=== PATIENT | female | born 2000 | race African-American/Black ===

== ENCOUNTER 2021-02-03 15:12 | Emergency (ER) | payer OTHER ==
--- OUTSIDE RECORDS SUMMARY | 2021-02-03 15:19 | XMS REPORT | Continuity of Care Document ---
:2000 Author Organization [facility] t Address [address] [place] [address] Dr. Pena. [address] [place] [address] Care Team Providers Name Role Phone Froy Grant Attending Clinician Provider, Urgent Care Attending Clinician Unavailable Doctor Unassigned, Name Attending Clinician Unavailable Problems This patient has no known problems. Allergies, Adverse Reactions, Alerts This patient has no known allergies or adverse reactions. Medications This patient has no known medications. Procedures This patient has no known procedures. Encounters Start End Encounter Admission Attending Care Care Encounter Source Date/Time Date/Time Type Type Clinicians Facility Department ID 2021-01-24 2021-01-24 Emergency Karey [facility] [id number] 13:15:00 15:56:00 Kinjal Mejia [id number] [place] [id number] [place] [id number] 2021-01-24 2021-01-24 Urgent Provider SCASHLEY [id number] 12:46:57 13:06:57 Care [facility] [id number] Care [place] [id number] [facility] [phone] nal [address] 2021-01-24 2021-01-24 Orders Doctor DAVIDSON [id number] 00:00:00 00:00:00 Only UnassignedJOSEPH [id number] [place] [phone] [id number] Results This patient has no known results.
[2021-02-03] MEDS ORDERED: ONDANSETRON 4 MG/2 ML VIAL ONE (16:14)
[2021-02-03 16:19] LABS: Absolute Lymphocytes (CBC) 0.7 K/uL (0.7-4.9); Basophils % 0.1 % (0-1.3); Hematocrit 36.9 % (36.0-45.0); MPV 9.7 fL (7.6-11.3); RBC Red Blood Cell Count 4.71 M/uL (3.86-4.86)
[2021-02-03] MEDS ORDERED: NA CHLORIDE 0.9% 1,000 ML ONE ×2 (16:26→19:01)
[2021-02-03 16:30] LABS: ALT/SGPT 22 U/L (12-78); AST/SGOT 20 U/L (15-37); Albumin 4.1 g/dL (3.4-5.0); Alkaline Phosphatase 79 U/L (45-117); BUN Blood Urea Nitrogen 7 mg/dL (7-18); Bicarbonate 20 mmol/L (21-32); Bilirubin Direct 0.1 mg/dL (0-0.2); Bilirubin Total 0.6 mg/dL (0.2-1.0); Glucose Level 128 mg/dL (74-106); Lipase 65 U/L (73-393); Potassium 3.5 mmol/L (3.5-5.1); Protein, Total 8.6 g/dL (6.4-8.2); Sodium Level 143 mmol/L (136-145)
[2021-02-03 16:37] LABS: Urine Blood 1+ (Negative); Urine Glucose Negative (Negative); Urine Protein 1+ (Negative); Urine Specific Gravity 1.025 (1.005-1.030); Urine pH 8.5 (5.0-7.0)
[2021-02-03 16:53] LABS: Urine Specific Gravity/Preg 1.025 (1.005-1.030)
[2021-02-03] MEDS ORDERED: PROMETHAZINE INJ 25 MG/ML AMP ONE ×2 (17:00→19:00)
[2021-02-03] MEDS ORDERED: MORPHINE 4 MG/ML SYR ONE (17:05)
[2021-02-03] MEDS ORDERED: FAMOTIDINE 20 MG/2 ML VIAL IV ONE (17:06)
--- NOTE | 2021-02-03 17:30 | RAD REPORT ---
EXAM DESCRIPTION: CT - Abdomen Pelvis W Contrast - 02/03/2021 5:01 pm CLINICAL HISTORY: ABD PAIN COMPARISON: No comparisons TECHNIQUE: Biphasic, helical CT imaging of the abdomen and pelvis was performed following 100 ml non -ionic IV contrast. Oral contrast was given. All CT scans are performed using dose optimization technique as appropriate and may include automated exposure control or mA/KV adjustment according to patient size. FINDINGS: No suspicious findings in the lung bases. The liver, spleen, and pancreas show no suspicious findings. Gallbladder and biliary tree are also wi thout suspicious finding. Symmetric renal function is seen with no hydronephrosis or suspicious renal mass. No pyelonephritis o r acute parenchymal process. No bladder abnormalities. No adrenal abnormalities. Uterus and ovaries s how no suspicious findings. No dilated bowel loops or bowel wall thickening. No appendicitis findings. No free air, free fluid or inflammatory stranding. No hernia, mass or bulky lymphadenopathy. No suspicious bony findings. IMPRESSION: Contrast enhanced CT abdomen and pelvis showing no significant or suspicious finding.
--- NOTE | 2021-02-03 18:56 | EDPHYS ---
Physician Documentation [facility] Name: Josie Hyde Age: 20 yrs Sex: Female : 2000 Arrival Date: 02/03/2021 Time: 15:16 Bed 26 Private MD: ED Physician Carlin Cisneros HPI: 02/03 16:51 This 20 yrs old Black Female presents to ER via Wheelchair with complaints of Vomiting, ma2 Abdominal Pain. 16:51 The patient presents to the emergency department with nausea, vomiting, abdominal pain. ma2 Onset: The symptoms/episode began/occurred gradually, 1 day(s) ago. Associated signs and symptoms: Pertinent negatives: constipation, dysuria, GI bleeding. Severity of symptoms: At their worst the symptoms were mild in the emergency department the symptoms are unchanged. The patient has experienced similar episodes in the past. 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 - Social history:: Smoking status: Patient denies any tobacco usage or history of. - Family history:: not pertinent. ROS: 16:51 Constitutional: Negative for fever, chills, and weight loss. ma2 16:51 All other systems are negative. Exam: 16:51 Constitutional: This is a well developed, well nourished patient who is awake, alert, ma2 and in no acute distress. Chest/axilla: Normal chest wall appearance and motion. Nontender with no deformity. No lesions are appreciated. Cardiovascular: Regular rate and rhythm with a normal S1 and S2. No gallops, murmurs, or rubs. Normal PMI, no JVD. No pulse deficits. Respiratory: Lungs have equal breath sounds bilaterally, clear to auscultation and percussion. No rales, rhonchi or wheezes noted. No increased work of breathing, no retractions or nasal flaring. Abdomen/GI: Soft, non-tender, with normal bowel sounds. No distension or tympany. No guarding or rebound. No evidence of tenderness throughout. Back: No spinal tenderness. No costovertebral tenderness. Full range of motion. Skin: Warm, dry with normal turgor. Normal color with no rashes, no lesions, and no evidence of cellulitis. MS/ Extremity: Pulses equal, no cyanosis. Neurovascular intact. Full, normal range of motion. Neuro: Awake and alert, GCS 15, oriented to person, place, time, and situation. Cranial nerves II-XII grossly intact. Motor strength 5/5 in all extremities. Sensory grossly intact. Cerebellar exam normal. Normal gait. Vital Signs: 15:44 Pulse 69; Resp 17 S; Temp 97.6(TE); Pulse Ox 100% on R/A; Weight 116.12 kg (R); Height jd3 5 ft. 9 in. (175.26 cm) (R); Pain 10/10; 16:30 BP 136 / 82; Pulse 76; Resp 18; Pulse Ox 100% on R/A; ld1 17:45 BP 128 / 78; Pulse 76; Resp 18; Pulse Ox 100% ; ld1 18:30 BP 132 / 80; Pulse 68; Resp 18; Pulse Ox 100% ; ld1 19:41 BP 134 / 84; Pulse 74; Resp 18; Pulse Ox 100% ; ld1 15:44 Body Mass Index 37.80 (116.12 kg, 175.26 cm) jd3 MDM: 16:27 Patient medically screened. wy2 16:51 Differential diagnosis: gastritis, appendicitis, diverticulitis, viral gastroenteritis, ma2 gastroenteritis. 18:41 Data reviewed: vital signs, nurses notes. Counseling: I had a detailed discussion with ma2 the patient and/or guardian regarding: the historical points, exam findings, and any diagnostic results supporting the discharge/admit diagnosis, the presence of at least one elevated blood pressure reading (>120/80) during this emergency department visit, the need for outpatient follow up. Response to treatment: the patient's symptoms have markedly improved after treatment. ED course: patient has scheduled endoscope with dr. shields, at 11 am, symptoms resolved at this time.. discussed with dr. bullard . 02/03 15:53 Order name: Basic Metabolic Panel; Complete Time: 16:42 [facility] 02/03 15:53 Order name: CBC with Diff [facility] 02/03 15:53 Order name: Hepatic Function; Complete Time: 16:42 [facility] 02/03 15:53 Order name: Lipase; Complete Time: 16:42 wy2 02/03 16:37 Order name: Urine Dipstick-Ancillary; Complete Time: 16:42 EDMS 02/03 16:40 Order name: Urine --Ancillary (enter results); Complete Time: 18:14 eb 02/03 15:57 Order name: CT Abd/Pelvis - IV Contrast Only; Complete Time: 18:14 ma2 02/03 15:53 Order name: IV Saline Lock; Complete Time: 16:02 ma2 02/03 15:53 Order name: Labs collected and sent; Complete Time: 16:02 wy2 02/03 15:53 Order name: Urine Dipstick-Ancillary (obtain specimen); Complete Time: 16:50 ma2 02/03 15:53 Order name: Urine Test (obtain specimen); Complete Time: 16:50 ma2 Administered Medications: 16:02 Drug: Zofran (Ondansetron) 4 mg Route: IVP; Site: left antecubital; ld1 16:33 Follow up: Response: No adverse reaction ld1 16:02 Drug: NS 0.9% 1000 ml Route: IV; Rate: 1 bolus; Site: left antecubital; ld1 17:44 Follow up: Response: No adverse reaction; IV Status: Completed infusion ld1 16:49 Drug: Phenergan (promethazine) 25 mg Route: IVP; Site: left antecubital; ld1 17:43 Follow up: Response: No adverse reaction ld1 16:50 Drug: Pepcid (famotidine) 20 mg Route: IVP; Site: left antecubital; ld1 17:43 Follow up: Response: No adverse reaction ld1 16:50 Drug: morphine 4 mg Route: IVP; Site: left antecubital; ld1 17:43 Follow up: Response: No adverse reaction ld1 18:52 Drug: Dilaudid (HYDROmorphone) 1 mg Route: IVP; Site: left antecubital; ld1 18:53 Follow up: Response: No adverse reaction ld1 18:52 Drug: Phenergan (promethazine) 25 mg Route: IVP; Site: left antecubital; ld1 18:53 Follow up: Response: No adverse reaction ld1 18:53 Drug: NS 0.9% 1000 ml Route: IV; Rate: 1 bolus; Site: left antecubital; ld1 Disposition: 02/03/21 18:55 Discharged to Home. Impression: Upper abdominal pain, unspecified. - Condition is Stable. - Discharge Instructions: Abdominal Pain, Adult, [id number]-[id number]. - Prescriptions for Zofran 4 mg Oral Tablet - take 1 tablet by ORAL route every 12 hours As needed; 20 tablet. Pepcid 20 mg Oral Tablet - take 1 tablet by ORAL route once daily for 10 days; 10 tablet. promethazine 25 mg Oral Tablet - take 1 tablet by ORAL route every 6 hours As needed; 20 tablet. - Medication Reconciliation Form, Thank You Letter, Antibiotic Education, Prescription Opioid Use form. - Follow up: Michael Jackson; When: Tomorrow; Reason: If symptoms return, Continuance of care. Signatures: Dispatcher [employer] Sivakumar Torres RN RN jd3 Carlin Cisneros MD MD ma2 Rosie Brito RN RN ld1 Corrections: (The following items were deleted from the chart) 19:41 18:55 02/03/2021 18:55 Discharged to Home. Impression: Upper abdominal pain, ld1 unspecified. Condition is Stable. Discharge Instructions: Abdominal Pain, Adult, [id number]. Prescriptions for Zofran 4 mg Oral Tablet - take 1 tablet by ORAL route every 12 hours As needed; 20 tablet, Pepcid 20 mg Oral Tablet - take 1 tablet by ORAL route once daily for 10 days; 10 tablet, promethazine 25 mg Oral Tablet - take 1 tablet by ORAL route every 6 hours As needed; 20 tablet. and Forms are Medication Reconciliation Form, Thank You Letter, Antibiotic Education, Prescription Opioid Use. Follow up: Michaelair NarvaezJackson; When: Tomorrow; Reason: If symptoms return, Continuance of care. ma2
--- NOTE | 2021-02-03 18:56 | ER ---
Nurse's Notes [facility] Name: Josie Hyde Age: 20 yrs Sex: Female : 2000 Arrival Date: 02/03/2021 Time: 15:16 Bed 26 Private MD: Diagnosis: Upper abdominal pain, unspecified Presentation: 02/03 15:42 Chief complaint: Patient states: "I am having diffuse abdominal pain and nausea and jd3 vomiting. I was supposed to see Dr. Ramos, but he said he needed a CT scan before being seen. I do have an appointment tomorrow for an upper GI depending on what we see here.". Coronavirus screen: At this time, the client does not indicate any symptoms associated with coronavirus-19. Ebola Screen: Patient negative for fever greater than or equal to 101.5 degrees Fahrenheit, and additional compatible Ebola Virus Disease symptoms. Initial Sepsis Screen: Does the patient meet any 2 criteria? No. Patient's initial sepsis screen is negative. Does the patient have a suspected source of infection? No. Patient's initial sepsis screen is negative. Risk Assessment: Do you want to hurt yourself or someone else? Patient reports no desire to harm self or others. Onset of symptoms was February 03, 2021. 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 - Social history:: Smoking status: Patient denies any tobacco usage or history of. - Family history:: not pertinent. Screenin:02 Abuse screen: Denies threats or abuse. Denies injuries from another. Nutritional ld1 screening: No deficits noted. Tuberculosis screening: No symptoms or risk factors identified. Fall Risk None identified. Assessment: 16:02 General: Appears in no apparent distress. uncomfortable, Behavior is cooperative, ld1 appropriate for age. Pain: Complains of pain in abdomen. Neuro: Level of Consciousness is awake, alert, obeys commands, Oriented to person, place, time, situation, Appropriate for age. Cardiovascular: Capillary refill < 3 seconds Patient's skin is warm and dry. Respiratory: Airway is patent Respiratory effort is even, unlabored, Respiratory pattern is regular, symmetrical. GI: Abdomen is round non-distended, Pt is actively vomiting Reports nausea, vomiting. : No signs and/or symptoms were reported regarding the genitourinary system. EENT: No signs and/or symptoms were reported regarding the EENT system. Derm: No signs and/or symptoms reported regarding the dermatologic system. Musculoskeletal: No signs and/or symptoms reported regarding the musculoskeletal system. 17:30 Reassessment: Patient appears in no apparent distress at this time. No changes from ld1 previously documented assessment. laying in bed with mother at bedside, waiting on results. 19:40 Reassessment: Patient appears in no apparent distress at this time. Patient denies pain ld1 at this time. Vital Signs: 15:44 Pulse 69; Resp 17 S; Temp 97.6(TE); Pulse Ox 100% on R/A; Weight 116.12 kg (R); Height jd3 5 ft. 9 in. (175.26 cm) (R); Pain 10/10; 16:30 BP 136 / 82; Pulse 76; Resp 18; Pulse Ox 100% on R/A; ld1 17:45 BP 128 / 78; Pulse 76; Resp 18; Pulse Ox 100% ; ld1 18:30 BP 132 / 80; Pulse 68; Resp 18; Pulse Ox 100% ; ld1 19:41 BP 134 / 84; Pulse 74; Resp 18; Pulse Ox 100% ; ld1 15:44 Body Mass Index 37.80 (116.12 kg, 175.26 cm) jd3 ED Course: 15:16 Patient arrived in ED. mr 15:43 Triage completed. jd3 15:45 Arm band placed on. jd3 15:52 Carlin Cisneros MD is Attending Physician. ma2 16:01 Rosie Brito, MELINA is Primary Nurse. ld1 16:02 Patient has correct armband on for positive identification. Bed in low position. Call ld1 light in reach. Side rails up X2. Pulse ox on. NIBP on. 16:02 No provider procedures requiring assistance completed. Inserted saline lock: 20 gauge ld1 in left antecubital area, using aseptic technique. Blood collected. 17:02 CT Abd/Pelvis - IV Contrast Only In Process Unspecified. EDMS 18:55 Michael Jackson MD is Referral Physician. ma2 19:41 IV discontinued, intact, bleeding controlled, No redness/swelling at site. ld1 Administered Medications: 16:02 Drug: Zofran (Ondansetron) 4 mg Route: IVP; Site: left antecubital; ld1 16:33 Follow up: Response: No adverse reaction ld1 16:02 Drug: NS 0.9% 1000 ml Route: IV; Rate: 1 bolus; Site: left antecubital; ld1 17:44 Follow up: Response: No adverse reaction; IV Status: Completed infusion ld1 16:49 Drug: Phenergan (promethazine) 25 mg Route: IVP; Site: left antecubital; ld1 17:43 Follow up: Response: No adverse reaction ld1 16:50 Drug: Pepcid (famotidine) 20 mg Route: IVP; Site: left antecubital; ld1 17:43 Follow up: Response: No adverse reaction ld1 16:50 Drug: morphine 4 mg Route: IVP; Site: left antecubital; ld1 17:43 Follow up: Response: No adverse reaction ld1 18:52 Drug: Dilaudid (HYDROmorphone) 1 mg Route: IVP; Site: left antecubital; ld1 18:53 Follow up: Response: No adverse reaction ld1 18:52 Drug: Phenergan (promethazine) 25 mg Route: IVP; Site: left antecubital; ld1 18:53 Follow up: Response: No adverse reaction ld1 18:53 Drug: NS 0.9% 1000 ml Route: IV; Rate: 1 bolus; Site: left antecubital; ld1 Outcome: 18:55 Discharge ordered by . ma2 19:41 Discharged to home via wheelchair. ld1 19:41 Condition: stable 19:41 Discharge instructions given to patient, family, Instructed on discharge instructions, follow up and referral plans. medication usage, Demonstrated understanding of instructions, follow-up care, medications. 19:41 Patient left the ED. ld1 Signatures: Dispatcher [facility] MartellHeidi Jonathon, RN RN jd3 Alzahri, Mohammad, MD MD ma2 Dibbern, Rosie, RN RN ld1 Corrections: (The following items were deleted from the chart) 15:47 15:42 Chief complaint: Patient states: "I am having diffuse abdominal pain and nausea jd3 and vomiting." jd3 15:48 15:42 Acuity: SHUN 3 jd3 jd3
[2021-02-03] MEDS ORDERED: HYDROMORPHONE HCL 2 MG/ML inj ONE (19:01)
[2021-02-03 19:46] VITALS: TEMP 97.6; O2SAT 100
[2021-02-03 19:52] VITALS: BP 134/84
[2021-02-03 20:12] LABS: Blood Morphology Comment NOT SEEN (NOT SEEN); Platelet Estimate ADEQ; White Blood Cell Scan OK (OK)
== END 2021-02-03 19:41 | disposition home or self-care (01) ==
LOC: ER 15:12
DX: R10.10 Upper abdominal pain, unspecified (principal)
CPT/HCPCS: 85025; 80048; 36415; 81025; 80076; 81003; 83690; 74177; Q9967; J2550 ×2; J1170; J7030 ×2; J2405

== ENCOUNTER 2021-02-04 23:22 | Emergency (ER) | payer OTHER ==
--- OUTSIDE RECORDS SUMMARY | 2021-02-04 23:24 | XMS REPORT | Continuity of Care Document ---
:2000 Author Organization [facility] t Address [address] [place] [address] Dr. Pena. [address] [place] [address] Care Team Providers Name Role Phone Froy [...] Facility Department ID 2021-01-24 2021-01-[address] [facility] [id number] 13:15:00 15:56:00 Kinjal Mejia [id number] [place] [id number] [place] [id number] 2021-01-24 2021-01-24 Urgent Provider MTASHLEY [id number] 12:46:57 13:06:57 Care [facility] [id number] Care [place] [id number] [facility] [place] [facility] [phone] nal [address] 2021-01-24 2021-01-24 Orders Doctor DAVIDSON [id number] 00:00:00 00:00:00 Only UnassignedJOSEPH [id number] [place] [id number] Results This patient has no known results.
[2021-02-05 00:52] LABS: Urine Blood 1+ (Negative); Urine Glucose Negative (Negative); Urine Protein 2+ (Negative); Urine Specific Gravity >=1.030 (1.005-1.030); Urine pH 6.5 (5.0-7.0)
[2021-02-05] MEDS ORDERED: ONDANSETRON 4 MG/2 ML VIAL ONE (01:03)
[2021-02-05 01:12] LABS: Basophils % 0.6 % (0-1.3); Hematocrit 35.9 % (36.0-45.0); Lymphocytes % 25.4 % (15.3-44.8); MPV 9.9 fL (7.6-11.3); RBC Red Blood Cell Count 4.63 M/uL (3.86-4.86)
[2021-02-05] MEDS ORDERED: MORPHINE 4 MG/ML SYR ONE (01:19)
[2021-02-05] MEDS ORDERED: FAMOTIDINE 20 MG/2 ML VIAL IV ONE (01:19)
[2021-02-05] MEDS ORDERED: NA CHLORIDE 0.9% 1,000 ML ONE (01:19)
[2021-02-05 01:30] LABS: Urine Specific Gravity/Preg >1.030 (1.005-1.030)
[2021-02-05 01:33] LABS: ALT/SGPT 21 U/L (12-78); AST/SGOT 17 U/L (15-37); Albumin 4.1 g/dL (3.4-5.0); Alkaline Phosphatase 74 U/L (45-117); BUN Blood Urea Nitrogen 10 mg/dL (7-18); Bicarbonate 22 mmol/L (21-32); Bilirubin Direct 0.1 mg/dL (0-0.2); Bilirubin Total 0.6 mg/dL (0.2-1.0); Glucose Level 101 mg/dL (74-106); Lipase 63 U/L (73-393); Potassium 3.5 mmol/L (3.5-5.1); Protein, Total 8.5 g/dL (6.4-8.2); Sodium Level 142 mmol/L (136-145)
[2021-02-05] MEDS ORDERED: CEFTRIAXONE/SWI 1gm 1 GM/10 ML SYR ONE (02:55)
--- NOTE | 2021-02-05 03:52 | ER ---
Nurse's Notes [facility] Name: Josie Hyde Age: 20 yrs Sex: Female : 2000 Arrival Date: 02/04/2021 Time: 23:25 Bed 18 Private MD: Diagnosis: Gastroenteritis;Urinary tract infection, site not specified Presentation: 02/04 23:53 Chief complaint: Patient states: N/V/D and abdominal pain since yesterday, was seen em here yesterday by Dr. Francis today and had an upper scope done, found one polyp, was given zofran but it is not helping. Coronavirus screen: Client denies travel out of the [place] in the last 14 days. Ebola Screen: Patient negative for fever greater than or equal to 101.5 degrees Fahrenheit, and additional compatible Ebola Virus Disease symptoms Patient denies exposure to infectious person. Patient denies travel to an Ebola-affected area in the 21 days before illness onset. No symptoms or risks identified at this time. Initial Sepsis Screen: Does the patient meet any 2 criteria? No. Patient's initial sepsis screen is negative. Does the patient have a suspected source of infection? No. Patient's initial sepsis screen is negative. Risk Assessment: Do you want to hurt yourself or someone else? Patient reports no desire to harm self or others. Onset of symptoms was February 04, 2021. 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 - Social history:: Smoking status: Patient denies any tobacco usage or history of. Screenin/26 01:30 Abuse screen: Denies threats or abuse. Denies injuries from another. Nutritional rr5 screening: No deficits noted. Tuberculosis screening: No symptoms or risk factors identified. Fall Risk IV access (20 points). Total Dumont Fall Scale indicates No Risk (0-24 pts). Assessment: 00:10 General: Appears in no apparent distress. uncomfortable, Behavior is calm, cooperative, rr5 appropriate for age. 00:10 Pain: Complains of pain in abdomen Pain currently is 8 out of 10 on a pain scale. rr5 Quality of pain is described as aching, Pain began gradually, Is intermittent. Neuro: Level of Consciousness is awake, alert, obeys commands, Oriented to person, place, time. Cardiovascular: Capillary refill < 3 seconds Patient's skin is warm and dry. Respiratory: Airway is patent Respiratory effort is even, unlabored, Respiratory pattern is regular, symmetrical. GI: Abdomen is round non-distended, Abd is soft and non tender Reports lower abdominal pain, upper abdominal pain, nausea, vomiting. : No signs and/or symptoms were reported regarding the genitourinary system. Derm: Skin is intact, is healthy with good turgor, Skin temperature is warm. Musculoskeletal: Circulation, motion, and sensation intact. 01:15 Reassessment: Patient appears in no apparent distress at this time. Patient is alert, rr5 oriented x 3, equal unlabored respirations, skin warm/dry/pink. 02:45 Reassessment: Patient appears in no apparent distress at this time. Patient is alert, rr5 oriented x 3, equal unlabored respirations, skin warm/dry/pink. Patient states feeling better. Patient states symptoms have improved. 04:00 Reassessment: Patient appears in no apparent distress at this time. Patient is alert, rr5 oriented x 3, equal unlabored respirations, skin warm/dry/pink. discharge instruction given and explained without complaints made Patient states feeling better. Patient states symptoms have improved. Vital Signs: 02/04 23:53 BP 118 / 70; Pulse 86; Resp 18; Temp 97.9; Pulse Ox 100% on R/A; Weight 115.67 kg; em Height 5 ft. 10 in. (177.80 cm); Pain 05/22; 02/05 01:00 BP 135 / 89; Pulse 75; Resp 22; Pulse Ox 99% on R/A; rr5 02:00 BP 118 / 74; Pulse 65; Resp 17; Pulse Ox 98% ; rr5 02:45 BP 115 / 60; Pulse 60; Resp 19; Pulse Ox 99% ; rr5 04:00 BP 126 / 89; Pulse 65; Resp 17; Pulse Ox 98% ; rr5 02/04 23:53 Body Mass Index 36.59 (115.67 kg, 177.80 cm) em ED Course: 02/04 23:25 Patient arrived in ED. bp1 23:55 Triage completed. em 23:56 Arm band placed on. em 02/05 00:09 Felix Decker, MELINA is Primary Nurse. rr5 00:20 Rogerio Marroquin MD is Attending Physician. 7 00:44 Patient has correct armband on for positive identification. Placed in gown. Bed in low mh5 position. Call light in reach. Side rails up X 1. Adult w/ patient. Warm blanket given. Pulse ox on. NIBP on. 00:44 Initial lab(s) drawn, by me, sent to lab. Urine collected: clean catch specimen, cole mh5 colored. Inserted saline lock: 20 gauge in right antecubital area, using aseptic technique. Blood collected. 01:58 CT Abd/Pelvis - IV Contrast Only In Process Unspecified. EDMS 03:50 Michael Jackson MD is Referral Physician. mh7 04:06 No provider procedures requiring assistance completed. IV discontinued, intact, rr5 bleeding controlled, No redness/swelling at site. Pressure dressing applied. Administered Medications: 00:45 Drug: Zofran (Ondansetron) 4 mg Route: IVP; Site: right antecubital; rr5 01:45 Follow up: Response: No adverse reaction rr5 01:00 Drug: morphine 4 mg {Note: rass 0.} Route: IVP; Site: right antecubital; rr5 02:00 Follow up: Response: No adverse reaction; RASS: Alert and Calm (0) rr5 01:05 Drug: Pepcid (famotidine) 20 mg Route: IVP; Site: right antecubital; rr5 02:05 Follow up: Response: No adverse reaction rr5 01:12 Drug: NS 0.9% 1000 ml Route: IV; Rate: 1000 ml; Site: right antecubital; rr5 02:20 Follow up: Response: No adverse reaction; IV Status: Completed infusion; IV Intake: rr5 1000ml 02:38 Drug: Rocephin (cefTRIAXone) 1 grams Route: IV; Rate: per protocol; Site: right forearm;rr5 03:30 Follow up: Response: No adverse reaction; IV Status: Completed infusion; IV Intake: [id number] Intake: 02:20 IV: 1000ml; Total: 1000ml. rr5 03:30 IV: 10ml; Total: 1010ml. rr5 Outcome: 03:51 Discharge ordered by . [email or web address] 04:05 Discharged to home ambulatory, with family. rr5 04:05 Condition: stable 04:05 Discharge instructions given to patient, family, Instructed on discharge instructions, follow up and referral plans. medication usage, Demonstrated understanding of instructions, follow-up care, medications, Prescriptions given X 3. 04:11 Patient left the ED. rr5 Signatures: Dispatcher [employer] Sabino Patton, RN Danika Victor Felix Decker RN RN rr5 Mckenzie Mendoza Maurice, MD MD 7
--- NOTE | 2021-02-05 03:52 | EDPHYS ---
Physician Documentation [facility] Name: Josie Hyde Age: 20 yrs Sex: Female : 2000 Arrival Date: 02/04/2021 Time: 23:25 Bed 18 Private MD: ED Physician Rogerio Marroquin HPI: 02/05 02:34 This 20 yrs old Black Female presents to ER via Wheelchair with complaints of Abdominal mh7 Pain, Nausea, Vomiting. 02:35 The patient presents to the emergency department with nausea, that is moderate, mh7 vomiting, that is intermittent, described as clear fluid, diarrhea, that is intermittent, abdominal pain, of the epigastric area, described as intermittent, vague,\E\ waxing and waning, and does not radiate. 02:35 Onset: The symptoms/episode began/occurred yesterday. Possible causes: unknown. The mh7 symptoms are aggravated by nothing. The symptoms are alleviated by nothing. 02:36 Associated signs and symptoms: Pertinent positives: abdominal pain, diarrhea, nausea, mh7 vomiting, Pertinent negatives: anorexia, belching, constipation, dysuria, fever, flatulence, GI bleeding, hematuria, vaginal discharge. Severity of symptoms: At their worst the symptoms were moderate yesterday, in the emergency department the symptoms are unchanged. The patient has been recently seen by a physician:. 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 - Social history:: Smoking status: Patient denies any tobacco usage or history of. ROS: 02/05 02:36 Constitutional: Negative for fever, chills, and weight loss, Eyes: Negative for injury, mh7 pain, redness, and discharge, ENT: Negative for injury, pain, and discharge, Neck: Negative for injury, pain, and swelling, Cardiovascular: Negative for chest pain, palpitations, and edema, Respiratory: Negative for shortness of breath, cough, wheezing, and pleuritic chest pain, Back: Negative for injury and pain, : Negative for injury, bleeding, discharge, and swelling, MS/Extremity: Negative for injury and deformity, Skin: Negative for injury, rash, and discoloration, Neuro: Negative for headache, weakness, numbness, tingling, and seizure, Psych: Negative for depression, anxiety, suicide ideation, homicidal ideation, and hallucinations, Allergy/Immunology: Negative for hives, rash, and allergies, Endocrine: Negative for neck swelling, polydipsia, polyuria, polyphagia, and marked weight changes, Hematologic/Lymphatic: Negative for swollen nodes, abnormal bleeding, and unusual bruising. Exam: 02:36 Constitutional: This is a well developed, well nourished patient who is awake, alert, mh7 and in no acute distress. Head/Face: Normocephalic, atraumatic. Eyes: Pupils equal round and reactive to light, extra-ocular motions intact. Lids and lashes normal. Conjunctiva and sclera are non-icteric and not injected. Cornea within normal limits. Periorbital areas with no swelling, redness, or edema. Neck: Trachea midline, no thyromegaly or masses palpated, and no cervical lymphadenopathy. Supple, full range of motion without nuchal rigidity, or vertebral point tenderness. No Meningismus. Chest/axilla: Normal chest wall appearance and motion. Nontender with no deformity. No lesions are appreciated. Cardiovascular: Regular rate and rhythm with a normal S1 and S2. No gallops, murmurs, or rubs. Normal PMI, no JVD. No pulse deficits. Respiratory: Lungs have equal breath sounds bilaterally, clear to auscultation and percussion. No rales, rhonchi or wheezes noted. No increased work of breathing, no retractions or nasal flaring. 02:36 Back: No spinal tenderness. No costovertebral tenderness. Full range of motion. Skin: Warm, dry with normal turgor. Normal color with no rashes, no lesions, and no evidence of cellulitis. MS/ Extremity: Pulses equal, no cyanosis. Neurovascular intact. Full, normal range of motion. Neuro: Awake and alert, GCS 15, oriented to person, place, time, and situation. Cranial nerves II-XII grossly intact. Motor strength 5/5 in all extremities. Sensory grossly intact. Cerebellar exam normal. Normal gait. 02:36 Abdomen/GI: Inspection: abdomen appears normal, obese Bowel sounds: normal, in all quadrants, Palpation: moderate abdominal tenderness, in the epigastric area, mass, is not appreciated, rebound tenderness, is not appreciated, voluntary guarding, is not appreciated, involuntary guarding, is not appreciated, no appreciated organomegaly, Rectal exam: the exam is deferred, because of patient request, Indicators: McBurney's point is not tender, Constantino's sign is negative, Rovsing's sign is negative, Obturator sign is negative, Psoas sign is negative, Liver: no appreciated palpable abnormalities, Hernia: not appreciated. Vital Signs: 02/04 23:53 BP 118 / 70; Pulse 86; Resp 18; Temp 97.9; Pulse Ox 100% on R/A; Weight 115.67 kg; em Height 5 ft. 10 in. (177.80 cm); Pain 05/22; 02/05 01:00 BP 135 / 89; Pulse 75; Resp 22; Pulse Ox 99% on R/A; rr5 02:00 BP 118 / 74; Pulse 65; Resp 17; Pulse Ox 98% ; rr5 02:45 BP 115 / 60; Pulse 60; Resp 19; Pulse Ox 99% ; rr5 04:00 BP 126 / 89; Pulse 65; Resp 17; Pulse Ox 98% ; rr5 02/04 23:53 Body Mass Index 36.59 (115.67 kg, 177.80 cm) em MDM: 03:49 Differential diagnosis: Nonspecific abd pain, gastritis, cholecystitis, pancreatitis, mh7 diverticulitis, viral gastroenteritis, gastroenteritis. Data reviewed: vital signs, nurses notes, lab test result(s), CBC, electrolytes, urinalysis, radiologic studies, CT scan. Counseling: I had a detailed discussion with the patient and/or guardian regarding: the historical points, exam findings, and any diagnostic results supporting the discharge/admit diagnosis, lab results, radiology results, the need for outpatient follow up, to return to the emergency department if symptoms worsen or persist or if there are any questions or concerns that arise at home. Response to treatment: the patient's symptoms have resolved after treatment, the patient's blood pressure is in an acceptable range, mental status has returned to baseline, the patient no longer shows bradycardia, the patient is not short of breath, the patient is not tachycardic, the patient's pain is gone, the patient's temperature has normalized. 03:51 Patient medically screened. [facility] 02/05 00:45 Order name: Basic Metabolic Panel; Complete Time: 02:19 [facility] 02/05 00:45 Order name: CBC with Diff; Complete Time: 02:19 [facility] 02/05 00:45 Order name: Hepatic Function; Complete Time: 02:19 [facility] 02/05 00:45 Order name: Lipase; Complete Time: 02:19 [facility] 02/05 00:52 Order name: Urine Dipstick-Ancillary; Complete Time: 00:53 [facility] 02/05 00:56 Order name: Urine --Ancillary (enter results); Complete Time: 02:19 [facility] 02/05 00:45 Order name: IV Saline Lock; Complete Time: 00:45 [facility] 02/05 00:45 Order name: Labs collected and sent; Complete Time: 00:45 [facility] 02/05 00:55 Order name: CT Abd/Pelvis - IV Contrast Only [facility] 02/05 00:45 Order name: Urine Dipstick-Ancillary (obtain specimen); Complete Time: 00:45 [facility] 02/05 00:45 Order name: Urine Test (obtain specimen); Complete Time: 00:45 rr5 Administered Medications: 00:45 Drug: Zofran (Ondansetron) 4 mg Route: IVP; Site: right antecubital; rr5 01:45 Follow up: Response: No adverse reaction rr5 01:00 Drug: morphine 4 mg {Note: rass 0.} Route: IVP; Site: right antecubital; rr5 02:00 Follow up: Response: No adverse reaction; RASS: Alert and Calm (0) rr5 01:05 Drug: Pepcid (famotidine) 20 mg Route: IVP; Site: right antecubital; rr5 02:05 Follow up: Response: No adverse reaction rr5 01:12 Drug: NS 0.9% 1000 ml Route: IV; Rate: 1000 ml; Site: right antecubital; rr5 02:20 Follow up: Response: No adverse reaction; IV Status: Completed infusion; IV Intake: rr5 1000ml 02:38 Drug: Rocephin (cefTRIAXone) 1 grams Route: IV; Rate: per protocol; Site: right forearm;rr5 03:30 Follow up: Response: No adverse reaction; IV Status: Completed infusion; IV Intake: [id number] Disposition: 02/05/21 03:51 Discharged to Home. Impression: Gastroenteritis, Urinary tract infection, site not specified. - Condition is Stable. - Discharge Instructions: Viral Gastroenteritis, Adult, [id number], Urinary Tract Infection, Adult, [id number]. - Prescriptions for ondansetron 4 mg Oral tablet,disintegrating - place 1 tablet by TRANSLINGUAL route every 8 hours As needed; 10 tablet. Bentyl 20 mg Oral Tablet - take 1 tablet by ORAL route every 6 hours As needed; 20 tablet. Cipro 500 mg Oral Tablet - take 1 tablet by ORAL route every 12 hours for 7 days; 14 tablet. - Medication Reconciliation Form, Thank You Letter, Antibiotic Education, Prescription Opioid Use form. - Follow up: Private Physician; When: 1 - 2 days; Reason: Worsening of condition, Recheck today's complaints, Continuance of care, Re-evaluation by your physician. Follow up: Michael Jackson MD; When: 1 - 2 days; Reason: Worsening of condition, Recheck today's complaints, Continuance of care, Re-evaluation by your physician. - Problem is new. - Symptoms have improved. Signatures: Dispatcher [employer] EDSabino Juárez RN RN Felix Caldwell RN RN rr5 Rogerio Marroquin MD MD 7 Corrections: (The following items were deleted from the chart) 04:11 03:51 02/05/2021 03:51 Discharged to Home. Impression: Gastroenteritis; Urinary tract rr5 infection, site not specified. Condition is Stable. Forms are Medication Reconciliation Form, Thank You Letter, Antibiotic Education, Prescription Opioid Use. Follow up: Private Physician; When: 1 - 2 days; Reason: Worsening of condition, Recheck today's complaints, Continuance of care, Re-evaluation by your physician. Follow up: Michael Jackson; When: 1 - 2 days; Reason: Worsening of condition, Recheck today's complaints, Continuance of care, Re-evaluation by your physician. Problem is new. Symptoms have improved. 7
[2021-02-05 04:19] VITALS: TEMP 97.9
[2021-02-05 04:24] VITALS: BP 115/60; O2SAT 99
--- NOTE | 2021-02-05 20:22 | RAD REPORT ---
EXAM DESCRIPTION: CT - Abdomen Pelvis W Contrast - 02/05/2021 6:32 am CLINICAL HISTORY: 20 years, Female, Abd pain;Nausea / vomiting COMPARISON: 02/03/2021 TECHNIQUE: Contrast-enhanced images of the abdomen and pelvis were performed utilizing 2 mm slice th ickness at 2 mm interval reconstruction from the lung bases to the ischial tuberosities after the adm inistration of IV contrast. In addition multiplanar reformats in the coronal and sagittal plane were obtained and reviewed. This exam was performed according to our departmental dose-optimization protocol, which includes auto mated exposure control, adjustment of the mA and/or kV according to patient size and/or use of iterat jamal reconstruction technique. FINDINGS: The lung bases demonstrate to be clear. The liver, pancreas, spleen and adrenal glands demonstrate to be unremarkable, no focal lesions are n oted. Gallbladder demonstrate presence of vicarious excretion of contrast media from recent prior iod ine study The kidneys demonstrate normal uptake of contrast media with no evidence for hydronephrosis. Grossly the unopacified stomach, small bowel and large bowel demonstrate to be within normal limits. There is no evidence for bowel dilatation/or free air. The appendix is normal. The urinary bladder demonstrate to be unremarkable. The uterus demonstrate to be unremarkable. Ther e are no adnexal masses. Minimal trace of free fluid posterior cul-de-sac physiologic in nature. Th e aorta demonstrate to be normal. There is no retroperitoneal lymphadenopathy. There is no evidence for ascites and/or significant abnormal fluid collections. The rest of the soft tissue and bony stru ctures are within normal limits. IMPRESSION: No acute intra-abdominal pathology. Unremarkable CT scan of the abdomen and pelvis with contrast. No significant interval change in gerard rison with prior study. Electronically signed by: Dwight Hawthorne MD 02/05/2021 2:17 AM CDT Due to temporary technical issues with the PACS/Fluency reporting system, reports are being signed by the in house radiologists without review as a courtesy to insure prompt reporting. The interpreting radiologist is fully responsible for the content of the report
== END 2021-02-05 04:11 | disposition home or self-care (01) ==
LOC: ER 23:22
DX: K52.9 Noninfective gastroenteritis and colitis, unspecified (principal); N39.0 Urinary tract infection, site not specified
CPT/HCPCS: 85025; 80048; 36415; 81025; 80076; 81003; 83690; 74177; Q9967; J0696; J7030; J2405; 96361; 96365; 96375; 99284